=== PATIENT | male | born 1995 | race Caucasian/White ===

== ENCOUNTER 2018-09-07 17:07 | Emergency (ER) | payer OTHER ==
[2018-09-07 17:14] VITALS: BP 143/97
--- NOTE | 2018-09-07 18:08 | RADIOLOGY IMAGING REPORT ---
[facility] PATIENT NAME: Kyle Melendez : 1995 MR: [id number] V: [id number] EXAM DATE: ORDERING PHYSICIAN: ROSEMARIE HEART TECHNOLOGIST: Location: [facility] Patient: Kyle Melendez : 1995 Visit/Account:[id number] Date of Sevice: 09/07/2018 EXAMINATION: PA and Lateral Chest 09/07/2018 5:58 PM HISTORY: Left-sided rib pain. Shortness of breath. COMPARISON: None FINDINGS: Cardiomediastinal contours: Normal Lungs and pleura: No parenchymal contusion or infiltrate. No pneumothorax or pleural fluid. Bones/soft tissues: Negative. No left rib fracture or displacement evident. IMPRESSION: No acute cardiopulmonary abnormality. Report Dictated By: Rui Mustafa MD at 09/07/2018 6:03 PM Report E-Signed By: Rui Mustafa MD at 09/07/2018 6:04 PM WSN:[id number]
--- NOTE | 2018-09-07 18:09 | ER Report ---
History and Physical Time Seen By MD: 17:15 Hx. of Stated Complaint: FELL WHILE SNOWBOARDING HPI/ROS CHIEF COMPLAINT: Chest pain after fall HISTORY OF PRESENT ILLNESS: 23-year-old male was snowboarding today at 12:30. He reports that he fell backwards relatively hard, initially landing on buttocks then back and head hit ground. He initially felt a bit stunned, though no loss of consciousness and no headache. He was able to ambulate from the scene was unable to continue snowboarding. He noted left mid back pain and left lower chest wall pain that he attributed to a rib injury. When he got home, he took 2 ibuprofen with some relief. However, pain continued to increase in patient pre sents with concern for rib fracture. He notes no shortness of breath at rest, however does have difficulty taking a deep breath. He denies fever, nausea, vomiting, abdominal pain, headache, extremity weakness, or other concerns. No prior significant injuries. REVIEW OF SYSTEMS: Constitutional: No fever, no chills. Eyes: no blurred vision ENT: no midface pain Cardiovascular: no central chest pain Respiratory: above Gastrointestinal: No abdominal pain, no vomiting. Genitourinary: no hematuria, no dysuria Musculoskeletal: above Skin: No rashes. Neurological: No headache. Remainder of the 14 system rev: Yes Allergies: Coded Allergies: No Known Drug Allergies (Unverified , 09/07/18) Home Meds Active Scripts Hydrocodone Bit/Acetaminophen (NORCO 5-325 TABLET) 1 Each Tablet, 1 EACH PO Q4- 6H, #10 TAB Prov:ROSEMARIE HEART MD 09/07/18 Reviewed Nurses Notes: Yes Hx Substance Use Disorder: Yes (OCCASSIONAL MARIJUANA) Hx Alcohol Use: No Constitutional Vital Sign - Last 24 Hours 09/07/18 17:14 Temp 98.0 Pulse 85 Resp 16 B/P (MAP) 143/97 Pulse Ox 94 O2 Delivery Room Air Physical Exam General Appearance: The patient is alert, has no immediate need for airway protection and no signs of toxicity. Eyes: Pupils equal and round no pallor or injection. ENT, Mouth: midface stable Respiratory: There are no retractions, lungs are clear to auscultation. Cardiovascular: Regular rate and rhythm. Gastrointestinal: Abdomen is soft and non tender, no masses, bowel sounds normal. Specifically, no LUQ ttp. Neurological: alert, moves all ext Skin: Warm and dry, no rashes. Musculoskeletal: Neck is supple non tender. No midline spine pain throughout No posterior thoracic pain. Left lower anterior thoracic ttp. Extremities are nontender, nonswollen and have full range of motion. DIFFERENTIAL DIAGNOSIS: After history and physical exam differential diagnosis was considered for pneumothorax, splenic/renal injury, compression fx, or other emergent etiology. Medical Decision Making ED Course/Re-evaluation ED Course 23-year-old male presents approximately 5 hours after fall and increasing pain to left lower thoracic area. Patient does not have any respiratory distress. Does not have midline spine tenderness or other signs of injury. X-ray obtained to rule out pneumothorax is negative for pneumothorax. No significant displacement fracture is noted. Patient informs that he has rib injury and given supportive treatment as well as strict return precautions. Decision to Disposition Date: Sep 07, 2018 Decision to Disposition Time: 18:30 Depart Departure Latest Vital Signs Vital Signs Date Time Temp Pulse Resp B/P (MAP) Pulse Ox O2 Delivery O2 Flow Rate FiO2 09/07/18 17:14 98.0 85 16 143/97 94 Room Air Impression: Primary Impression: Rib injury Condition: Improved Disposition: HOME OR SELF-CARE New Scripts Hydrocodone Bit/Acetaminophen (NORCO 5-325 TABLET) 1 Each Tablet 1 EACH PO Q4-6H, #10 TAB Prov: ROSEMARIE HEART MD 09/07/18 Patient Instructions: Rib Contusion (ED) ROSEMARIE HEART MD Sep 07, 2018 18:09
[2018-09-07] MEDS ORDERED: HYDR-653 PO (18:30)
[2018-09-07] MEDS ORDERED: ACET/HYDROC 5/325MG TH ER ONLY 2 TAB/BOTTLE PO ONE (18:30)
[2018-09-07] MEDS ORDERED: IBUPROFEN 600 MG TAB PO ONE (18:30)
== END 2018-09-07 18:47 | disposition home or self-care (01) ==
LOC: ER 17:21
DX: R07.81 Pleurodynia (principal); W00.0XXA Fall on same level due to ice and snow, initial encounter; Y93.23 Activity, snow (alpine) (downhill) skiing, snowboarding, sledding, tobogganing and snow tubing
CPT/HCPCS: 71046; 99283